=== PATIENT | female | born 1975 | race Caucasian/White ===

== ENCOUNTER 2016-06-08 16:47 | Emergency (ER) | payer OTHER ==
[2016-06-08 17:44] VITALS: BP 111/68
--- NOTE | 2016-06-08 18:41 | UC ---
Complaint Female HPI - HPI Summary HPI Summary: Itchy area on external genitals for about a month, worse in the last 2 weeks. Occasionally has lumps that drain. Has tried OTC miconazole. - History Of Current Complaint Chief Complaint: UCGU Stated Complaint: PERSONAL Time Seen by Provider: 06/08/16 18:02 Hx Obtained From: Patient Hx Last Menstrual Period: 05/31/16 ?: No Onset/Duration: Gradual Onset, Lasting Weeks Timing: Constant Severity Initially: Mild Severity Currently: Moderate Aggravating Factor(s): Nothing Alleviating Factor(s): Nothing - Allergies/Home Medications Allergies/Adverse Reactions: Allergies Allergy/AdvReac Type Severity Reaction Status Date / Time No Known Allergies Allergy Verified 06/08/16 17:35 PMH/Surg Hx/FS Hx/Imm Hx Previously Healthy: Yes - Surgical History Surgical History: Yes Surgery Procedure, Year, and Place: Bilateral Breast surgery; IUD removal- under anesthesia - Family History Known Family History: Negative: Diabetes - Social History Lives: With Family Alcohol Use: None Substance Use Type: None Smoking Status (MU): Heavy Every Day Tobacco Smoker Amount Used/How Often: 1/2ppd Household Exposure Type: Cigarettes Review of Systems Constitutional: Negative Skin: Other - itchiness Eyes: Negative ENT: Negative Respiratory: Negative Cardiovascular: Negative Gastrointestinal: Negative Genitourinary: Negative Motor: Negative Neurovascular: Negative Musculoskeletal: Negative Neurological: Negative Psychological: Negative All Other Systems Reviewed And Are Negative: Yes Physical Exam Triage Information Reviewed: Yes Appearance: Well-Appearing, No Pain Distress, Well-Nourished Vital Signs: Initial Vital Signs Temp 98.2 F 06/08/16 17:36 Pulse 78 06/08/16 17:36 Resp 16 06/08/16 17:36 BP 111/68 06/08/16 17:36 Pulse Ox 99 06/08/16 17:36 Vital Signs Reviewed: Yes Eye Exam: Normal Eyes: Positive: Conjunctiva Clear ENT Exam: Normal ENT: Positive: Normal ENT inspection, Hearing grossly normal, Pharynx normal, TMs normal Dental Exam: Other - dentures Neck exam: Normal Respiratory Exam: Normal Respiratory: Positive: Chest non-tender, Lungs clear, Normal breath sounds, No respiratory distress, No accessory muscle use Cardiovascular Exam: Normal Cardiovascular: Positive: RRR, No Murmur Musculoskeletal Exam: Normal Neurological Exam: Normal Psychological Exam: Normal Skin Exam: Other - folliculitis with 2cm deep abscess on mons and external labia. Not pointing, nothing to I&D - Additional Comments Pelvic exam performed. external exam as above. Cervix pink, nontender, white/ clear d/c. Adnexa nontender, no masses. Swab obtained. Complaint Female Dx - Differential Dx/Diagnosis Provider Diagnoses: folliculitis on mons and labia majora. skin abscess R labia majora Discharge - Discharge Plan Condition: Stable Disposition: HOME Prescriptions: DOXYcycline CAP(*) [DOXYcycline 100MG CAP(*)] 100 mg PO BID #10 cap Patient Education Materials: Folliculitis (ED) Referrals: SAMUEL Wong [Primary Care Provider] - Additional Instructions: Stop shaving entirely; this may be all you need to do to help the area heal. Apply warm packs to encourage the hard lump to drain on its own. If you have any lumps that become very large or have pain that is difficult to manage, please return here right away. I do not think you have yeast vaginitis based on your exam; you can stop the miconazole for now. I have sent a swab to the lab, and if it shows yeast we will call you.
== END 2016-06-08 18:52 | disposition home or self-care (01) ==
LOC: UCCORT 16:47
DX: L73.9 Follicular disorder, unspecified (principal); N76.4 Abscess of vulva; F17.210 Nicotine dependence, cigarettes, uncomplicated
CPT/HCPCS: 81003; 87480; 87491; 87510; 87591; 87660; 99202; G0463

== ENCOUNTER 2016-11-25 13:44 | Emergency (ER) | payer OTHER ==
[2016-11-25 13:56] VITALS: BP 109/75
--- NOTE | 2016-11-25 14:18 | ED ---
Skin Complaint - HPI Summary HPI Summary: 41 y/o female presents to the urgent care c/o or painful redness skin lesion in her LLQ abdomen for the past 4 days. Pain is 8/10. Pt states she had a similar rash in her left leg about 5 months ago for which she got ABx. She doesn't recall any insect bite. Pt denies fever,SOB, chest pain, abdominal pain. Pt denies Hx of MRSA. - History of Current Complaint Chief Complaint: UCSkin Time Seen by Provider: 11/25/16 13:57 Stated Complaint: SKIN COMPLAINT Hx Obtained From: Patient Hx Last Menstrual Period: October Onset/Duration: Started Days Ago, Still Present Skin Exposure Onset/Duration: Days Ago - 4 Timing: Constant Onset Severity: Mild Current Severity: Moderate Pain Intensity: 8 Pain Scale Used: 0-10 Numeric Skin Location: Discrete - LLQ abdomen Character: Pain, Redness - with green discharge Aggravating Symptom(s): Touch Alleviating Symptom(s): Nothing Associated Signs & Symptoms: Tenderness Similar Episode/Dx as: cellulitis 5 months ago - Allergy/Home Medications Allergies/Adverse Reactions: Allergies Allergy/AdvReac Type Severity Reaction Status Date / Time No Known Allergies Allergy Verified 11/25/16 13:56 Home Medications: Home Medications Neomycin/Polym/Bacit TOP OINT* [Neosporin TOP OINT TUBE*] 1 applic TOPICAL BID PRN 11/25/16 [History Confirmed 11/25/16] PMH/Surg Hx/FS Hx/Imm Hx Previously Healthy: Yes - Surgical History Surgery Procedure, Year, and Place: Bilateral Breast surgery; IUD removal- under anesthesia Infectious Disease History: No Infectious Disease History: Denies: Traveled Outside the [place] in Last 30 Days - Family History Known Family History: Positive: Cardiac Disease Negative: Diabetes Family History: Uterine cancer - Social History Occupation: Employed Full-time Lives: With Family Alcohol Use: None Substance Use Type: Reports: None Smoking Status (MU): Heavy Every Day Tobacco Smoker Amount Used/How Often: 1/2ppd Review of Systems Constitutional: Negative Eyes: Negative ENT: Negative Cardiovascular: Negative Respiratory: Negative Gastrointestinal: Negative Genitourinary: Negative Musculoskeletal: Negative Positive: Rash - LLQ abdomen with red rash and green discharge Neurological: Negative Psychological: Normal All Other Systems Reviewed And Are Negative: Yes Physical Exam Triage Information Reviewed: Yes Vital Signs On Initial Exam: Initial Vitals Temp Pulse Resp BP 98.9 F 88 18 109/75 11/25/16 13:48 11/25/16 13:48 11/25/16 13:48 11/25/16 13:48 Appearance: Positive: Well-Appearing, No Pain Distress, Well-Nourished Skin: Positive: Warm, Skin Color Reflects Adequate Perfusion, Other - LLA abdomen with erythematous patch with indistinct borders and a central wound with green discharge, tender to palpation, mild swelling Head/Face: Positive: Normal Head/Face Inspection Eyes: Positive: Normal, EOMI, JUANI, Conjunctiva Clear ENT: Positive: Normal ENT inspection, Hearing grossly normal, Pharynx normal, TMs normal Neck: Positive: Supple, Nontender, No Lymphadenopathy Respiratory/Lung Sounds: Positive: Clear to Auscultation, Breath Sounds Present Cardiovascular: Positive: Normal, RRR, Pulses are Symmetrical in both Upper and Lower Extremities, S1, S2 Abdomen Description: Positive: Nontender, No Organomegaly, Soft, Bruit. Negative: CVA Tenderness (R), CVA Tenderness (L) Bowel Sounds: Positive: Present Musculoskeletal: Positive: Normal, Strength/ROM Intact Neurological: Positive: Normal, Sensory/Motor Intact, Alert, Oriented to Person Place, Time, CN Intact II-III Psychiatric: Positive: Normal Diagnostics - Vital Signs Vital Signs Temp Pulse Resp BP 11/25/16 13:48 98.9 F 88 18 109/75 - Laboratory Lab Statement: Any lab studies that have been ordered have been reviewed, and results considered in the medical decision making process. Course/Dx - Course Course Of Treatment: 41 y/o female presents to the urgent care c/o or painful redness skin lesion in her LLQ abdomen for the past 4 days. Pain is 8/10. Pt states she had a similar rash in her left leg about 5 months ago for which she got ABx. She doesn't recall any insect bite. Pt denies fever,SOB, chest pain, abdominal pain. Pt denies Hx of MRSA.Hx obtained, Pt with cellulitis in the LLQ abdomen with suppurative green drainage possible s/p insect bite. Wound sample taken and sent to lab for culture to r/o MRSA. Wound irrigated with saline water. bacitracin applied and covered with sterile dressing. Pt Rx Bacitracin PO , bacitracin topical ointment. Pt advised if not improvement of symptoms to return to the urgent care or f/u with her PCP. If redness doubles in size or fever develops despite taking ABX to go immediately to the ER. Pt understood and agreed - Differential Diagnoses - Skin Complaint Differential Diagnoses: Abscess, Allergic Reaction, Cellulitis, Local Allergic Reaction, Lymphadenitis, MRSA, Tick Born Illness, Tinea, Urticaria, Other - insect bite, spider bite - Diagnoses Provider Diagnoses: Cellulitis Discharge - Discharge Plan Condition: Stable Disposition: HOME Prescriptions: Ibuprofen TAB* [Motrin TAB* 800 MG] 800 mg PO Q6H #20 tab Sulfamethox/Trimethoprim DS* [Bactrim DS 800/160 TAB*] 1 tab PO BID #20 tab Patient Education Materials: Cellulitis (ED) Referrals: SAMUEL Wong [Primary Care Provider] - 2 Days Additional Instructions: 1-Please take full course of antibiotic to avoid resistance. Keep wound clean and dry with a sterile dressing. Apply triple antibiotic topical TID as directed 2- F/u wound check up in 2 days with your PCP or at the urgent care 3-. Take Ibuprofen PO q6-8hrs prn for pain or swelling. 4-If you develop fever or redness despite antibiotic please go to the ER immediately or return to the Urgent care. 5- Wound culture sent to lab, if any abnormal result you will receive a call from us
== END 2016-11-25 14:37 | disposition home or self-care (01) ==
LOC: UCCORT 13:44
DX: L03.90 Cellulitis, unspecified (principal); B95.62 Methicillin resistant Staphylococcus aureus infection as the cause of diseases classified elsewhere; F17.210 Nicotine dependence, cigarettes, uncomplicated
CPT/HCPCS: 87070; 87077; 87186; 87205; 87640; 87641; 99212; G0463

== ENCOUNTER 2016-12-20 17:33 | Emergency (ER) | payer OTHER ==
[2016-12-20 18:51] VITALS: BP 109/71
--- NOTE | 2016-12-20 19:06 | UC ---
Skin Complaint HPI - HPI Summary HPI Summary: Sore on the left buttock cheek with redness, swelling, warmth and pain, now with drainage. No sweats/ chills/ fevers. - History of Current Complaint Chief Complaint: UCSkin Time Seen by Provider: 12/20/16 18:54 Stated Complaint: SORE ON LEG Hx Obtained From: Patient Hx Last Menstrual Period: 12/12/16 ?: No Onset/Duration: Gradual Onset - Left upper leg, posterior redness, warmth, swelling and tenderness, Worse Since - today with drainage. Timing: Constant Onset Severity: Mild Current Severity: Severe Location: Discrete - posterior upper left leg Character: Redness, Raised, Painful Aggravating Factor(s): Touch Alleviating Factor(s): Heat Associated Signs & Symptoms: Positive: Drainage, Tenderness. Negative: Diaphoresis, Weakness, Cough, Abdominal Pain, Red Streaks Similar Episode/Dx as: MRSA abscess - Allergy/Home Medications Allergies/Adverse Reactions: Allergies Allergy/AdvReac Type Severity Reaction Status Date / Time No Known Allergies Allergy Verified 12/20/16 18:45 Home Medications: Home Medications Ibuprofen TAB* [Motrin TAB* 800 MG] 800 mg PO Q6H PRN 12/20/16 [History Confirmed 12/20/16] Review of Systems Skin: Other - redness, swelling and pain. Is Patient Immunocompromised?: No All Other Systems Reviewed And Are Negative: Yes PMH/Surg Hx/FS Hx/Imm Hx Previously Healthy: Yes - Surgical History Surgical History: Yes Surgery Procedure, Year, and Place: Bilateral Breast surgery; IUD removal- under anesthesia - Family History Known Family History: Positive: Cardiac Disease Negative: Diabetes Family History: Uterine cancer - Social History Occupation: Employed Full-time Lives: With Family Alcohol Use: None Substance Use Type: None Smoking Status (MU): Heavy Every Day Tobacco Smoker Amount Used/How Often: 1/2ppd Household Exposure Type: Cigarettes Cessation Counseling: Patient Advised to Stop Physical Exam Triage Information Reviewed: Yes Appearance: Well-Appearing, Well-Nourished, Pain Distress - mild/ moderate pain with movement Vital Signs: Initial Vital Signs Temp 99.6 F 12/20/16 18:39 Pulse 86 12/20/16 18:39 Resp 17 12/20/16 18:39 BP 109/71 12/20/16 18:39 Pulse Ox 99 12/20/16 18:39 Vital Signs Reviewed: Yes Eyes: Positive: Conjunctiva Inflamed ENT: Positive: Pharynx normal, TMs normal Neck exam: Normal Respiratory Exam: Normal Cardiovascular Exam: Normal Abdomen Description: Positive: Nontender, No Organomegaly, Soft Musculoskeletal Exam: Normal Neurological Exam: Normal Psychological Exam: Normal Skin: Positive: Other - Posterior left upper leg 5 cm erythematous indurated plaque with central ulcer. Very tender. Course/Dx - Differential Diagnoses - Skin Complaint Differential Diagnoses: Abscess, Cellulitis, Impetigo - Diagnoses Provider Diagnoses: Abscess Left upper leg Discharge - Discharge Plan Condition: Stable Disposition: HOME Prescriptions: Sulfamethox/Trimethoprim DS* [Bactrim DS 800/160 TAB*] 1 tab PO BID #20 tab Additional Instructions: Continue with the Warm soaks/ packs. Smoking Cessation Tricks. 1. Cut down by 1 cigarette per day every 2-3 days. Write the number of smokes for that day on the calendar. 2. Identify triggers to smoking: after meals, on the phone, in the car, with coffee, on breaks at work, etc. 3. Formulate a plan with a behavior to replace the smoking. Fireballs in the car , doodle pad on the phone, flavored creamer for the coffee, go for a walk after a meal or on break at work. 4. For stress smokes do deep breathing relaxation. Breath deep in through the nose hold the breath in for a few seconds then breath out slowly through the mouth.
[2016-12-20] MEDS ORDERED: Sulfamethox/Trimethoprim DS 800/160* TAB PO ONE (19:09)
== END 2016-12-20 19:19 | disposition home or self-care (01) ==
LOC: UCCORT 17:33
DX: L02.416 Cutaneous abscess of left lower limb (principal); B95.62 Methicillin resistant Staphylococcus aureus infection as the cause of diseases classified elsewhere; F17.210 Nicotine dependence, cigarettes, uncomplicated; Z71.6 Tobacco abuse counseling
CPT/HCPCS: 87070; 87077; 87186; 87205; 87640; 87641; 99212; A9270-GY; G0463

== ENCOUNTER 2018-04-06 17:34 | Emergency (ER) | payer OTHER ==
[2018-04-06 17:55] VITALS: BP 128/79
--- NOTE | 2018-04-06 18:12 | UC ---
Ear Complaint HPI - HPI Summary HPI Summary: Pt c/o right ear pain that radiates "down neck" X 2-3 days. Denies fever, nasal congestion, or recent dental work - History of Current Complaint Chief Complaint: UCEar Stated Complaint: RT EAR COMPLAINT Time Seen by Provider: 04/06/18 17:53 Hx Obtained From: Patient Hx Last Menstrual Period: last week ?: No Onset/Duration: Gradual Onset, Lasting Days, Still Present Severity Initially: Mild Severity Currently: Moderate Pain Intensity: 7 Associated Signs/Symptoms: Positive: Swelling @ - Allergies/Home Medications Allergies/Adverse Reactions: Allergies Allergy/AdvReac Type Severity Reaction Status Date / Time No Known Allergies Allergy Verified 04/06/18 17:52 Home Medications: Home Medications NK [No Home Medications Reported] 04/06/18 [History Confirmed 04/06/18] PMH/Surg Hx/FS Hx/Imm Hx Previously Healthy: Yes - Surgical History Surgical History: Yes Surgery Procedure, Year, and Place: Bilateral Breast surgery; IUD removal- under anesthesia - Family History Known Family History: Positive: Cardiac Disease Negative: Diabetes Family History: Uterine cancer - Social History Occupation: Employed Full-time Lives: With Family Alcohol Use: None Substance Use Type: None Smoking Status (MU): Heavy Every Day Tobacco Smoker Type: Cigarettes Amount Used/How Often: 1/2 ppd Have You Smoked in the Last Year: Yes Household Exposure Type: Cigarettes Review of Systems All Other Systems Reviewed And Are Negative: Yes Constitutional: Positive: Negative Skin: Positive: Negative Eyes: Positive: Negative ENT: Positive: Ear Ache Respiratory: Positive: Negative Cardiovascular: Positive: Negative Gastrointestinal: Positive: Negative Genitourinary: Positive: Negative Motor: Positive: Negative Neurovascular: Positive: Negative Musculoskeletal: Positive: Myalgia Neurological: Positive: Negative Psychological: Positive: Negative Is Patient Immunocompromised?: No Physical Exam Triage Information Reviewed: Yes Appearance: Pain Distress Vital Signs: Initial Vital Signs Temp 98.6 F 04/06/18 17:53 Pulse 77 04/06/18 17:53 Resp 16 04/06/18 17:53 BP 128/79 04/06/18 17:53 Pulse Ox 100 04/06/18 17:53 Vital Signs Reviewed: Yes Eye Exam: Normal ENT: Positive: Other - right ear pain that radiates down neck cerumen right ear canal Dental Exam: Normal Neck exam: Normal Respiratory Exam: Normal Cardiovascular Exam: Normal Musculoskeletal Exam: Normal Neurological Exam: Normal Psychological Exam: Normal Skin Exam: Normal Ear Complaint Course/Dx - Differential Dx/Diagnosis Differential Diagnosis/HQI/PQRI: Otitis Media, URI Provider Diagnosis: Earache, right, Impacted cerumen of right ear Discharge - Sign-Out/Discharge Documenting (check all that apply): Patient Departure All imaging exams completed and their final reports reviewed: No Studies - Discharge Plan Condition: Stable Disposition: HOME Patient Education Materials: Cerumen Impaction (ED), Earache (ED) Referrals: SAMUEL Wong [Primary Care Provider] - If Needed - Billing Disposition and Condition Condition: STABLE Disposition: Home
== END 2018-04-06 18:16 | disposition home or self-care (01) ==
LOC: UCCORT 17:34
DX: H92.01 Otalgia, right ear (principal); H61.21 Impacted cerumen, right ear; F17.210 Nicotine dependence, cigarettes, uncomplicated
CPT/HCPCS: 99211; G0463